=== PATIENT | male | born 1955 | race Two or more races ===

== ENCOUNTER 2019-07-02 17:12 | Inpatient (IN) | payer OTHER ==
[~2019-07-02] VITALS: Ht 180.3 cm; Wt 84.8 kg
[2019-07-02] VITALS: BP 141/70
[2019-07-02] MEDS ORDERED: ONDANSETRON HCL 4MG/2ML INJ IV STA (18:45)
[2019-07-02] MEDS ORDERED: SODIUM CHLORIDE 0.9% 1,000 ML IV ONE (18:45)
[2019-07-02] MEDS ORDERED: LORAZEPAM 2MG/ML CPJ IV ONE (18:45)
[2019-07-02] MEDS ORDERED: ASPIRIN 81MG TABLET PO ONE (18:45)
[2019-07-02] MEDS ORDERED: FOLIC ACID 1 MG, THIAMINE HCL 100 MG, MVI, ADULT NO.1 10 ML in DEXTROSE 5% WATER 1,000 ML IV ONE ×4 (18:45)
[2019-07-02 18:57] LABS: BASOPHILS % 2.2 % (0.0-2.0); EOSINOPHILS % 0.4 % (0.0-5.0); HEMATOCRIT. 39.1 % (42.0-52.0); HEMOGLOBIN. 13.5 g/dL (14.0-18.0); LYMPHOCYTES % 23.2 % (20.0-50.0); MEAN CORPUSCULAR HEMOGLOBIN 34.7 pg (28.0-32.0); MEAN CORPUSCULAR VOLUME 100.6 fL (80.0-94.0); MEAN PLATELET VOLUME 7.2 fl (7.4-10.4); MONOCYTES % 9.5 % (2.0-8.0); NEUTROPHILS % 64.7 % (40.0-76.0); PLATELET 462 x1000/uL (130-400); RED BLOOD CELL COUNT 3.89 mill/uL (4.7-6.1)
[2019-07-02 18:59] LABS: CHLORIDE 109 mEq/L (98-107)
[2019-07-02 19:01] LABS: PARTIAL THROMBOPLASTIN TIME 26.3 sec (23.4-31.0); PROTHROMBIN TIME 10.3 sec (9.6-11.0)
[2019-07-02 19:04] LABS: ETHANOL BLOOD < 10 mg/dL
[2019-07-02 19:09] LABS: CREATINE KINASE 46 IU/L (39-308)
[2019-07-02 19:12] LABS: CREATINE KINASE MB FRACTION < 1.0 ng/mL (0.5-3.6)
[2019-07-02 19:25] LABS: CLARITY URINE CLEAR (CLEAR); COLOR URINE YELLOW (YELLOW); KETONES URINE NEGATIVE (NEGATIVE); LEUKOCYTE ESTERASE URINE NEGATIVE (NEGATIVE); NITRITE URINE NEGATIVE (NEGATIVE); OCCULT BLOOD URINE NEGATIVE (NEGATIVE); PH URINE 6.5 (4.5-8.0); PROTEIN URINE NEGATIVE (NEGATIVE); SPECIFIC GRAVITY URINE 1.014 (1.005-1.030); UROBILINOGEN URINE 0.2 E.U./dL (0.2-1.0)
[2019-07-02 19:39] LABS: *AMPHETAMINES SCREEN URINE NEGATIVE (NEGATIVE); *BENZODIAZEPINES SCREEN URINE NEGATIVE (NEGATIVE); *COCAINE SCREEN URINE NEGATIVE (NEGATIVE)
[2019-07-02 19:40] LABS: *BARBITURATES SCREEN URINE NEGATIVE (NEGATIVE); CANNABINOID URINE SCREEN NEGATIVE (NEGATIVE); METHADONE URINE SCREEN NEGATIVE (NEGATIVE); OPIATES URINE SCREEN NEGATIVE (NEGATIVE); PHENCYCLIDINE URINE SCREEN NEGATIVE (NEGATIVE)
[2019-07-02] MEDS ORDERED: ACETAMINOPHEN 325MG TABLET PO PRN (23:00)
[2019-07-02] MEDS ORDERED: ZOLPIDEM TARTRATE 5MG TABLET PO PRN (23:00)
[2019-07-02] MEDS ORDERED: IPRATROPIUM/ALBUTEROL 0.5-3(2.5)MG/3ML NEB HHN PRN (23:00)
[2019-07-02] MEDS ORDERED: KETOROLAC 15MG/ML VIAL IV PRN (23:00)
[2019-07-02] MEDS ORDERED: MAGNESIUM/ALUMINUM HYDROXIDE/SIMETHICONE 30ML UDC PO PRN (23:00)
[2019-07-02] MEDS ORDERED: DOCUSATE SODIUM 100MG CAPSULE PO PRN (23:00)
[2019-07-02] MEDS ORDERED: ONDANSETRON HCL 4MG/2ML INJ IV PRN (23:00)
[2019-07-02] MEDS ORDERED: LORAZEPAM 0.5MG TABLET PO PRN (23:00)
[2019-07-02] MEDS ORDERED: GUAIFENESIN 200MG/10ML SUGAR FREE UDC PO PRN (23:00)
[2019-07-02] MEDS ORDERED: CLONIDINE 0.1MG TABLET PO PRN (23:00)
[2019-07-02] MEDS: DILTIAZEM HCL 30MG TABLET PO SCH (23:48)
[2019-07-02 23:50] VITALS: BP 141/70
[2019-07-03] VITALS: BP 141/70
[2019-07-03] MEDS ORDERED: GABA-290 PO (00:44)
[2019-07-03] MEDS ORDERED: TRAZ-213 PO (00:44)
[2019-07-03] MEDS ORDERED: DULO60CA44 MT (00:44)
[2019-07-03] MEDS ORDERED: ACET-2708 PO (00:44)
[2019-07-03] MEDS ORDERED: IBUP-2077 PO (00:44)
[2019-07-03 01:36] LABS: VITAMIN B12 SERUM 657 pg/mL (211-911)
[2019-07-03 01:38] LABS: FOLIC ACID (FOLATE) SERUM > 20.00 ng/mL (>5.38)
[2019-07-03 04:00] VITALS: BP 106/55
[2019-07-03 06:14] LABS: CREATINE KINASE 32 IU/L (39-308)
[2019-07-03 06:15] LABS: CREATINE KINASE MB FRACTION < 1.0 ng/mL (0.5-3.6)
[2019-07-03] MEDS: DILTIAZEM HCL 30MG TABLET PO SCH ×2 (06:42→13:28)
[2019-07-03 08:00] VITALS: BP 112/70
[2019-07-03] MEDS ORDERED: ENOXAPARIN 40MG/0.4ML SYR SUBCUT SCH (09:00)
[2019-07-03] MEDS ORDERED: ASPIRIN 325MG EC TABLET PO SCH (09:00)
[2019-07-03] MEDS ORDERED: FAMOTIDINE 20MG TABLET PO SCH (09:00)
[2019-07-03 11:09] VITALS: BP_SYST 111; BP_SYST 112; BP_DIAS 70; BP_DIAS 75
[2019-07-03 12:00] VITALS: BP 111/75
[2019-07-03] MEDS ORDERED: PNEUMOCOCCAL 23-VAL P-SAC VAC 0.5 ML IM ONE (12:00)
== END 2019-07-03 14:24 | disposition home or self-care (01) | DRG 201 ==
LOC: ER 19:36 → 5WST 22:37 → EDBEDREQTM 22:43 → EDBEDREQ 22:43 → ENRESERV 22:50
PROVIDERS: ADMIT Internal Medicine; ATTEND Internal Medicine
DX: I47.1 Supraventricular tachycardia (principal); D63.8 Anemia in other chronic diseases classified elsewhere; R07.89 Other chest pain; F10.21 Alcohol dependence, in remission; F15.10 Other stimulant abuse, uncomplicated; Z86.73 Personal history of transient ischemic attack (TIA), and cerebral infarction without residual deficits; F32.9 Major depressive disorder, single episode, unspecified
CPT/HCPCS: 36415; 71045; 80061; 80305; 80320; 81003; 82550; 82553; 82607; 82746; 83036; 83540; 83550; 83880; 84443; 84484; 93005; 96374; 99285; J1650; J2060; J2405; J3411; J3490; J7030; J7070; G0480

== ENCOUNTER 2019-07-26 12:02 | Inpatient (IN) | payer OTHER ==
[~2019-07-26] VITALS: Ht 182.9 cm; Wt 81.0 kg
[~2019-07-26 12:02] MED LIST: ACET-2708 PO; DULO60CA44 MT; GABA-290 PO; IBUP-2077 PO; TRAZ-213 PO
[2019-07-26] MEDS ORDERED: ASPIRIN 81MG TABLET PO ONE (12:30)
[2019-07-26 12:39] LABS: EOSINOPHILS % 1.4 % (0.0-5.0); HEMATOCRIT. 41.7 % (42.0-52.0); HEMOGLOBIN. 14.4 g/dL (14.0-18.0); LYMPHOCYTES % 26.5 % (20.0-50.0); MEAN CORPUSCULAR HEMOGLOBIN 35.1 pg (28.0-32.0); MEAN CORPUSCULAR VOLUME 101.7 fL (80.0-94.0); MEAN PLATELET VOLUME 7.5 fl (7.4-10.4); MONOCYTES % 6.5 % (2.0-8.0); NEUTROPHILS % 64.6 % (40.0-76.0); PLATELET 244 x1000/uL (130-400); RED CELL DISTRIBUTION WIDTH 13.9 % (11.6-14.6)
[2019-07-26 12:47] LABS: CHLORIDE 108 mEq/L (98-107)
[2019-07-26 12:53] LABS: PROTHROMBIN TIME 10.3 sec (9.6-11.0)
[2019-07-26] MEDS ORDERED: IOHEXOL-350 100 ML BOTTLE ONE ×2 (13:58→14:04)
[2019-07-26 17:00] VITALS: BP 132/86
[2019-07-26] MEDS ORDERED: ACETAMINOPHEN 325MG TABLET PO PRN (17:15)
[2019-07-26] MEDS ORDERED: ZOLPIDEM TARTRATE 5MG TABLET PO PRN (17:15)
[2019-07-26] MEDS ORDERED: CLONIDINE 0.1MG TABLET PO PRN (17:15)
[2019-07-26] MEDS ORDERED: MORPHINE SULFATE 2 MG/ML CPJ (NOT FOR IM USE) IV PRN (17:45)
[2019-07-26] MEDS: HYDROCODONE/ACETAMINOPHEN 5/325MG TABLET PO PRN (18:52)
[2019-07-26] MEDS ORDERED: DULO60CA44 MT (18:55)
[2019-07-26] MEDS ORDERED: GABA-290 MT (18:55)
[2019-07-26] MEDS ORDERED: TRAZ150T78 MT (18:55)
[2019-07-26] MEDS ORDERED: ASPI-1393 MT (18:56)
[2019-07-26 20:00] VITALS: BP 102/62
[2019-07-26] MEDS: METOPROLOL TARTRATE 25MG TABLET PO SCH (20:29)
[2019-07-26] MEDS: NICOTINE 21MG PATCH TD SCH (20:30)
[2019-07-26] MEDS: TRAZODONE HCL 50MG TABLET PO SCH (20:31)
[2019-07-26] MEDS: GABAPENTIN 300MG CAPSULE PO SCH (20:31)
[2019-07-26] MEDS: ENOXAPARIN 30MG/0.3ML SYR SUBCUT SCH (20:32)
[2019-07-27] VITALS: BP 97/61
[2019-07-27 04:00] VITALS: BP 108/65
[2019-07-27 07:12] LABS: BASOPHILS % 0.9 % (0.0-2.0); EOSINOPHILS % 2.3 % (0.0-5.0); HEMATOCRIT. 42.6 % (42.0-52.0); HEMOGLOBIN. 14.5 g/dL (14.0-18.0); LYMPHOCYTES % 27.8 % (20.0-50.0); MEAN CORPUSCULAR HEMOGLOBIN 34.6 pg (28.0-32.0); MEAN CORPUSCULAR VOLUME 101.2 fL (80.0-94.0); MEAN PLATELET VOLUME 7.9 fl (7.4-10.4); MONOCYTES % 8.2 % (2.0-8.0); NEUTROPHILS % 60.8 % (40.0-76.0); PLATELET 259 x1000/uL (130-400); RED BLOOD CELL COUNT 4.21 mill/uL (4.7-6.1); RED CELL DISTRIBUTION WIDTH 14.1 % (11.6-14.6)
[2019-07-27 07:20] LABS: CHLORIDE 110 mEq/L (98-107)
[2019-07-27] MEDS ORDERED: GABAPENTIN 300MG CAPSULE PO SCH (09:00)
[2019-07-27] MEDS: GABAPENTIN 300MG CAPSULE PO SCH ×3 (09:14→18:19)
[2019-07-27] MEDS: ASPIRIN 81MG TABLET PO SCH (09:14)
[2019-07-27] MEDS: DULOXETINE HCL 60MG DR CAPSULE PO SCH (09:15)
[2019-07-27] MEDS: NICOTINE 21MG PATCH TD SCH (09:15)
[2019-07-27] MEDS: ENOXAPARIN 30MG/0.3ML SYR SUBCUT SCH (09:15)
[2019-07-27] MEDS: METOPROLOL TARTRATE 25MG TABLET PO SCH (09:15)
[2019-07-27 12:00] VITALS: BP 110/75
[2019-07-27] MEDS: DILTIAZEM HCL 60MG TABLET PO SCH ×2 (13:28→21:21)
[2019-07-27 16:00] VITALS: BP 115/72
[2019-07-27] MEDS ORDERED: DIGOXIN 125MCG TABLET PO SCH (18:00)
[2019-07-27 18:04] LABS: *COCAINE SCREEN URINE NEGATIVE (NEGATIVE)
[2019-07-27 18:05] LABS: *AMPHETAMINES SCREEN URINE NEGATIVE (NEGATIVE); *BARBITURATES SCREEN URINE NEGATIVE (NEGATIVE); CANNABINOID URINE SCREEN NEGATIVE (NEGATIVE); METHADONE URINE SCREEN NEGATIVE (NEGATIVE); OPIATES URINE SCREEN NEGATIVE (NEGATIVE); PHENCYCLIDINE URINE SCREEN NEGATIVE (NEGATIVE)
[2019-07-27 18:06] LABS: *BENZODIAZEPINES SCREEN URINE NEGATIVE (NEGATIVE)
[2019-07-27 20:00] VITALS: BP 116/96
[2019-07-27] MEDS: HYDROCODONE/ACETAMINOPHEN 5/325MG TABLET PO PRN (20:32)
[2019-07-27] MEDS: TRAZODONE HCL 50MG TABLET PO SCH (21:20)
[2019-07-28] VITALS: BP 90/51
[2019-07-28 04:00] VITALS: BP 103/55
[2019-07-28] MEDS: DILTIAZEM HCL 60MG TABLET PO SCH (05:38)
[2019-07-28 06:59] LABS: BASOPHILS % 1.2 % (0.0-2.0); EOSINOPHILS % 2.1 % (0.0-5.0); HEMATOCRIT. 45.2 % (42.0-52.0); HEMOGLOBIN. 15.2 g/dL (14.0-18.0); LYMPHOCYTES % 38.2 % (20.0-50.0); MEAN CORPUSCULAR HEMOGLOBIN 34.2 pg (28.0-32.0); MEAN CORPUSCULAR VOLUME 101.4 fL (80.0-94.0); MEAN PLATELET VOLUME 7.8 fl (7.4-10.4); NEUTROPHILS % 48.5 % (40.0-76.0); PLATELET 267 x1000/uL (130-400); RED BLOOD CELL COUNT 4.46 mill/uL (4.7-6.1)
[2019-07-28 07:26] LABS: CHLORIDE 108 mEq/L (98-107)
[2019-07-28 08:00] VITALS: BP 126/73
[2019-07-28] MEDS ORDERED: ENOXAPARIN 40MG/0.4ML SYR SUBCUT SCH (09:00)
[2019-07-28] MEDS: GABAPENTIN 300MG CAPSULE PO SCH (09:45)
[2019-07-28] MEDS: ASPIRIN 81MG TABLET PO SCH (09:45)
[2019-07-28] MEDS: DULOXETINE HCL 60MG DR CAPSULE PO SCH (09:45)
[2019-07-28] MEDS: NICOTINE 21MG PATCH TD SCH (09:46)
[2019-07-28 12:00] VITALS: BP 112/78
[2019-07-28 13:02] VITALS: BP 112/78
== END 2019-07-28 13:45 | disposition home or self-care (01) | DRG 243 ==
LOC: ER 12:21 → 8WST 14:11 → ENRESERV 15:25
PROVIDERS: ADMIT Internal Medicine; ATTEND Internal Medicine
DX: K21.9 Gastro-esophageal reflux disease without esophagitis (principal); I27.20 Pulmonary hypertension, unspecified; G62.9 Polyneuropathy, unspecified; I47.1 Supraventricular tachycardia; D64.9 Anemia, unspecified; Z86.73 Personal history of transient ischemic attack (TIA), and cerebral infarction without residual deficits; R07.2 Precordial pain; F32.9 Major depressive disorder, single episode, unspecified; F10.20 Alcohol dependence, uncomplicated; I10 Essential (primary) hypertension; F41.9 Anxiety disorder, unspecified; F10.21 Alcohol dependence, in remission; F15.10 Other stimulant abuse, uncomplicated; Z79.899 Other long term (current) drug therapy; R74.0 Nonspecific elevation of levels of transaminase and lactic acid dehydrogenase [LDH]
CPT/HCPCS: 36415; 71045; 71275; 80048; 80305; 83735; 83880; 84484; 85379; 93005; 93306; 96374; 99285; J1650; Q9967